=== PATIENT | male | born 1980 | race Hispanic/Latino ===

== ENCOUNTER → 2019-08-28 | Outpatient (CLI) | payer BC ==
[~2019-08-28] MED LIST: DIATRIZOATE MEGL/DIATRIZOA SOD 30 ML BTL PO ONE; IOPAMIDOL 370 MG/ML 200 ML INFUS..BTL INJ ONE; SODIUM CHLORIDE 0.9% 50ML 50 ML ONE
[2019-08-28 09:54] LABS: BLOOD UREA NITROGEN 23 mg/dL (7-26); BUN/CREATININE RATIO 23 (6-25); CREATININE, SERUM 0.98 mg/dL (0.72-1.25); EST GLOMERULAR FILTRATION RATE > 60 ML/MIN (60-)
--- NOTE | 2019-08-28 12:07 | Diagnostic Imaging Report ---
EXAM: CT Abdomen and Pelvis WITH intravenous contrast INDICATION: Abdominal mass COMPARISON: None. TECHNIQUE: Abdomen and pelvis were scanned utilizing a multidetector helical scanner from the lung base to the pubic symphysis after administration of IV contrast. Coronal and sagittal reformations were obtained. Routine protocol was performed. Scan was performed during portal venous phase. IV CONTRAST: 100mL of Isovue 370 ORAL CONTRAST: Gastrografin RADIATION DOSE: Total DLP: 802 mGy*cm Dose modulation, iterative reconstruction, and/or weight based adjustment of the mA/kV was utilized to reduce the radiation dose to as low as reasonably achievable. FINDINGS: LOWER THORAX: Normal. HEPATOBILIARY: Mild diffuse hepatic steatosis. No focal liver lesion. No biliary ductal dilation. Unremarkable gallbladder. SPLEEN: No splenomegaly. PANCREAS: No focal masses or ductal dilatation. ADRENALS: No adrenal nodules. KIDNEYS/URETERS: No hydronephrosis, stones, or solid mass lesions. PELVIC ORGANS/BLADDER: Unremarkable. PERITONEUM / RETROPERITONEUM: No free air or fluid. LYMPH NODES: No lymphadenopathy. VESSELS: Unremarkable. GI TRACT: No abnormal bowel thickening. No bowel obstruction. BONES AND SOFT TISSUES: No acute osseous injury. No suspicious lytic or blastic lesions. IMPRESSION: No acute findings in the abdomen or pelvis. Mild diffuse hepatic steatosis. Signed by: George Lamas MD on 08/28/2019 12:03 PM
== END ==
LOC: CT 08:31
PROVIDERS: ATTEND Surgery
DX: R19.00 Intra-abdominal and pelvic swelling, mass and lump, unspecified site (principal)
CPT/HCPCS: 36415; 74177; 82565; 84520; Q9967

== ENCOUNTER → 2019-12-01 | Day surgery (SDC) | payer BC, OTHER ==
[2019-11-27 15:55] LABS: BASOPHILS # (AUTO) 0.1 (0.0-0.1); BASOPHILS % 0.9 % (0.0-1.0); EOSINOPHILS # (AUTO) 0.2 (0.0-0.4); EOSINOPHILS % 1.9 % (0.0-6.0); HEMOGLOBIN 13.5 g/dL (14.0-18.0); LYMPHOCYTES # (AUTO) 2.4 (1.0-3.2); LYMPHOCYTES % 31.2 % (18.0-39.1); MEAN CORPUSCULAR HEMOGLOBIN 28.4 pg (28-32); MEAN CORPUSCULAR HGB CONC 33.8 g/dL (31-35); MONOCYTES # (AUTO) 0.6 (0.2-0.8); NEUTROPHILS # (AUTO) 4.5 (2.1-6.9); NEUTROPHILS % 57.7 % (38.7-80.0); PLATELET COUNT 277 x10e3/uL (140-360); RED BLOOD COUNT 4.76 x10e6/uL (4.3-5.7); RED CELL DISTRIBUTION WIDTH 12.2 % (11.7-14.4)
[2019-11-27 16:09] LABS: ANION GAP 13.4 mmol/L (8-16); BLOOD UREA NITROGEN 14 mg/dL (7-26); BUN/CREATININE RATIO 14 (6-25); CALCIUM 9.5 mg/dL (8.4-10.2); CARBON DIOXIDE 26 mmol/L (22-29); CHLORIDE 104 mmol/L (98-107); CREATININE, SERUM 0.97 mg/dL (0.72-1.25); EST GLOMERULAR FILTRATION RATE > 60 ML/MIN (60-); GLUCOSE 84 mg/dL (74-118); POTASSIUM 4.4 mmol/L (3.5-5.1); SODIUM 139 mmol/L (136-145)
[~2019-12-01] MED LIST changes: +ACETAMINOPHEN 1000 MG/100 ML IV ONE; +BACITRACIN ZINC 15 GM OINT ONE; +BUPIVACAINE 0.25%/EPI 30ML SDV INJ ONE; +CEFAZOLIN SOD 1 GM VIAL ONE; +CEFAZOLIN SOD 1 GM/NS 50ML 50 ML IV ONE; -DIATRIZOATE MEGL/DIATRIZOA SOD 30 ML BTL PO ONE; +HYDROCODONE/APAP 7.5MG-325MG 1 EA TAB ONE; -IOPAMIDOL 370 MG/ML 200 ML INFUS..BTL INJ ONE; +KETOROLAC TROMETHAMINE 30 MG/ML VIAL ONE; +LIDOCAINE HCL 2% LOCAL INJ 5 ML SDV VIAL INJ ONE; +MORPHINE SULFATE 2 MG/ML SYR 1ML ONE; +ONDANSETRON HCL INJ 2MG/ML 2ML 2 MG/ML VIAL ONE; +PROPOFOL IV EMULSION 10 MG/ML 20 ML VIAL ONE; +SEVOFLURANE INHAL SOLN 250 ML PEN BTL ONE; -SODIUM CHLORIDE 0.9% 50ML 50 ML ONE
[2019-12-01 11:20] VITALS: BP 138/88
--- NOTE | 2019-12-01 11:29 | Operative Report ---
DATE OF PROCEDURE: SURGEON: Lefty Trujillo MD PREOPERATIVE DIAGNOSIS: Umbilical hernia and painful nodule of the left side of the abdomen. POSTOPERATIVE DIAGNOSIS: Ventral hernia and nodule of the left side of the abdomen, final path pending. LANGUAGE INTERPRETER: Erasmo Gould. ESTIMATED BLOOD LOSS: Minimal. DRAINS: None. COMPLICATIONS: None. INDICATION AND FINDINGS: The patient is a 39-year-old male who complained of a bulge of the umbilicus and a painful nodule lateral to the umbilicus for several weeks. INTRAOPERATIVE FINDINGS: The patient had an epigastric hernia as well as an umbilical hernia and those were primarily closed each individually and then a flat polypropylene mesh was placed to cover both the suture lines to reinforce the repair since this fellow does lifting and lives an active physical life. The painful nodule was located about 4 cm lateral to the left side of the umbilicus, was firm and hard we were dealing with a neuroma. Pathology will let us know once we have the report. DESCRIPTION OF PROCEDURE: With the patient lying on the operative table in the supine position after administration of general anesthesia, he was prepped and draped for repair of presumed umbilical hernia and excision of mass of the left side of the umbilicus. An incision was made inferior to the umbilicus, carried down through the skin and subcutaneous tissue. The underlying surface of the skin of the umbilicus was detached from the hernias and we found that there was also small epigastric supraumbilical hernia in addition to a 1 cm umbilical defect. The other defect was about 0.5 cm. We then excised the properitoneal fat and then closed each defect with 0 Ethibond individually and then we cut polypropylene mesh to cover the previously primary repair hernias with ample margin inside and secured to the fascia with 2-0 Ethibond. After we did that, we closed the soft tissues with a combination of chromic and 2-0 Vicryl. The skin was closed with Ethibond. We paid attention to the palpable mass, 1 cm located just to the left of the umbilicus about four fingerbreadths and the max was excised with surrounding tissue to be well encapsulated nodule which releases a neurofibroma versus a well-encapsulated lipoma, remains to be seen. The wound was copiously irrigated and then the wound was closed with 2-0 Vicryl for the subcutaneous tissue and again Dermabond was applied. Sterile dressing was applied. The patient tolerated the procedure well and taken to recovery room in stable condition. MD SAM Lomas/MODL /[id number]
== END | disposition home or self-care (01) ==
LOC: OR 05:55
PROVIDERS: ATTEND Surgery
DX: K42.9 Umbilical hernia without obstruction or gangrene (principal); K43.9 Ventral hernia without obstruction or gangrene; D17.1 Benign lipomatous neoplasm of skin and subcutaneous tissue of trunk; R03.0 Elevated blood-pressure reading, without diagnosis of hypertension; Z01.812 Encounter for preprocedural laboratory examination; Z11.59 Encounter for screening for other viral diseases
CPT/HCPCS: 11401; 12031; 36415; 49560; 49568; 49585; 80048; 85025; 88304; C1781; J0131; J0690 ×2; J1885; J2001; J2270; J2405; J2704; U0002

== ENCOUNTER 2020-04-12 10:44 | Emergency (ER) | payer BC ==
[~2020-04-12] VITALS: Ht 185.4 cm; Wt 108.1 kg
[2020-04-12] MEDS ORDERED: IBUPROFEN400 MG PO (11:57)
[2020-04-12 12:38] VITALS: BP 162/88
== END 2020-04-12 12:35 | disposition home or self-care (01) ==
LOC: FSED 11:53
DX: M25.562 Pain in left knee (principal); M76.892 Other specified enthesopathies of left lower limb, excluding foot; I10 Essential (primary) hypertension
CPT/HCPCS: 99282